=== PATIENT | female | born 1950 | race Caucasian/White ===

== ENCOUNTER 2016-08-31 07:30 | Inpatient (IN) | payer MEDICARE, OTHER ==
[~2016-08-31] VITALS: Ht 157.5 cm; Wt 98.0 kg
[2016-08-31] MEDS ORDERED: FERR325C PO (12:40)
[2016-08-31] MEDS ORDERED: GABA-531 PO ×2 (12:40)
[2016-08-31] MEDS ORDERED: VITAD5000 PO (12:40)
[2016-08-31] MEDS ORDERED: PERCT PO (12:40)
[2016-08-31] MEDS ORDERED: LEVO75 PO (12:40)
[2016-08-31] MEDS ORDERED: SERT50TA12 PO (12:40)
[2016-08-31] MEDS ORDERED: WARF2.5 PO ×2 (12:40)
[2016-08-31] MEDS ORDERED: FAMO20 PO (12:40)
[2016-08-31] MEDS ORDERED: LISI-661 PO (12:40)
[2016-08-31] MEDS ORDERED: DIPH25 PO (12:40)
[2016-08-31] MEDS ORDERED: LORA10TA7 PO (12:40)
[2016-08-31 17:50] VITALS: BP 176/85
[2016-08-31 18:14] LABS: INR 1.6 (0.9-1.1); PROTHROMBIN TIME 16.8 SEC (9.4-11.6)
[2016-08-31] MEDS ORDERED: HEPARIN SODIUM 25000 UNITS/D5W 250 ML IV PRN (18:40)
[2016-08-31] MEDS ORDERED: HEPARIN SODIUM,PORCINE 5,000 UNITS/ML VIAL IVP PRN ×2 (18:45)
[2016-08-31 19:05] VITALS: BP 145/85
[2016-08-31 19:36] VITALS: BP 148/86
[2016-08-31 19:51] VITALS: BP 148/86
[2016-08-31] MEDS ORDERED: OxyCODONE HCL/ACETAMINOPHEN 5-325 MG TABLET PO PRN (20:30)
[2016-08-31 20:52] LABS: BASOPHILS % (AUTO) 0.3 % (0.0-2.0); EOSINOPHILS % (AUTO) 1.9 % (1.0-6.0); HEMATOCRIT 37.4 % (36-46); HEMOGLOBIN 12.7 g/dL (12.0-16.0); LYMPHOCYTES # (AUTO) 1.6 K/uL (1.0-4.8); MEAN CORPUSCULAR HEMOGLOBIN 29.9 pg (26.0-34.0); MEAN CORPUSCULAR HGB CONC 33.8 G/dL (31.0-37.0); MEAN CORPUSCULAR VOLUME 88 fL (80-100); MONOCYTES # (AUTO) 0.4 K/uL (0.1-1.0); NEUTROPHILS # (AUTO) 3.1 K/uL (1.8-7.7); NEUTROPHILS % (AUTO) 59.8 % (40.0-70.0); PLATELET COUNT (AUTO) 202 K/uL (150-450); RED BLOOD CELL COUNT(AUTO) 4.23 MIL/uL (4.00-5.20); WHITE BLOOD COUNT (AUTO) 5.2 K/uL (4.5-11.0)
[2016-08-31] MEDS: FAMOTIDINE 20 MG TABLET PO SCH (20:59)
[2016-08-31] MEDS ORDERED: DiphenhydrAMINE HCL 25 MG CAPSULE PO SCH (21:00)
[2016-08-31] MEDS ORDERED: GABAPENTIN 300 MG CAPSULE PO SCH (21:00)
[2016-08-31 21:10] LABS: ANION GAP 9 mmol/L (8-16); CALCIUM, TOTAL 8.6 mg/dL (8.8-10.5); CARBON DIOXIDE 30 mmol/L (22-29); CHLORIDE 104 mmol/L (98-107); CREATININE 0.78 mg/dL (0.60-1.30); GLOMERULAR FILTR. RATE CALC > 60 mL/min (>60); POTASSIUM 3.7 mmol/L (3.5-5.1); SODIUM SERUM 143 mmol/L (136-145); UREA NITROGEN, BLOOD 16 mg/dL (7-18)
[2016-08-31] MEDS: SERTRALINE HCL 50 MG TABLET PO SCH (21:19)
[2016-08-31] MEDS ORDERED: 0.9% SODIUM CHLORIDE 10 ML SYRINGE IVP PRN (23:00)
[2016-08-31 23:31] VITALS: BP 151/70
[2016-09-01 03:53] LABS: BASOPHILS % (AUTO) 0.2 % (0.0-2.0); EOSINOPHILS % (AUTO) 2.3 % (1.0-6.0); HEMATOCRIT 34.6 % (36-46); HEMOGLOBIN 11.5 g/dL (12.0-16.0); LYMPHOCYTES # (AUTO) 1.5 K/uL (1.0-4.8); LYMPHOCYTES % (AUTO) 32.9 % (22.0-44.0); MEAN CORPUSCULAR HEMOGLOBIN 29.6 pg (26.0-34.0); MEAN CORPUSCULAR HGB CONC 33.3 G/dL (31.0-37.0); MEAN CORPUSCULAR VOLUME 89 fL (80-100); MONOCYTES # (AUTO) 0.5 K/uL (0.1-1.0); MONOCYTES % (AUTO) 10.3 % (2.0-9.0); NEUTROPHILS # (AUTO) 2.5 K/uL (1.8-7.7); NEUTROPHILS % (AUTO) 54.3 % (40.0-70.0); PLATELET COUNT (AUTO) 170 K/uL (150-450); RED CELL DISTRIBUTION WIDTH 13.4 % (11.5-14.5); WHITE BLOOD COUNT (AUTO) 4.6 K/uL (4.5-11.0)
[2016-09-01 03:59] VITALS: BP 135/69
[2016-09-01] MEDS: HYDROmorphone 2 MG/ML SYRINGE IVP PRN ×2 (04:19→10:42)
[2016-09-01] MEDS ORDERED: VANCOMYCIN HCL 1 GM/D5% WATER 200 ML IV ONE ×2 (06:00→18:00)
[2016-09-01] MEDS ORDERED: RINGERS SOLUTION,LACTATED 1,000 ML IV ONE (06:00)
[2016-09-01] MEDS ORDERED: LEVOTHYROXINE SODIUM 75 MCG TABLET PO SCH (06:30)
[2016-09-01] MEDS ORDERED: GUM MASTIC/STORAX/MSAL/ALCOHOL LIQUID 0.67 ML VIAL TP ONE ×2 (06:45→08:25)
[2016-09-01] MEDS: ACETAMINOPHEN 1000 MG/ISO-OSM 100 ML IV SCH ×2 (07:00→13:09)
[2016-09-01] MEDS ORDERED: PROMETHAZINE HCL 25 MG/ML VIAL IM PRN (07:00)
[2016-09-01] MEDS ORDERED: ONDANSETRON HCL 4 MG/2 ML VIAL IVP PRN (07:00)
[2016-09-01] MEDS ORDERED: HYDROmorphone 2 MG/ML SYRINGE IVP PRN ×2 (07:00→09:30)
[2016-09-01] MEDS ORDERED: ACETAMINOPHEN 1000 MG/ISO-OSM 100 ML IV ONE (07:05)
[2016-09-01] MEDS ORDERED: PHYTONADIONE 5 MG in SODIUM CHLORIDE 0.9% 50 ML IV ONE (07:30)
[2016-09-01] MEDS ORDERED: SODIUM CL IRRIG SOLN BAG 3,000 ML IRRIG ONE (07:30)
[2016-09-01] MEDS ORDERED: FERROUS SULFATE 325 MG EC TABLET PO SCH (08:00)
[2016-09-01] MEDS: BUPIVACAINE LIPOSOME/PF 1.3%-13.3MG/ML SUSPENSION 20 ML VIAL INJ ONE ×2 (08:04→08:20)
[2016-09-01] MEDS: BUPIVACAINE HCL/PF 0.5% 30 ML VIAL ONE ×2 (08:05→08:20)
[2016-09-01] MEDS ORDERED: MUPIROCIN CALCIUM 2% 22 GM OINTMENT ONE (08:25)
[2016-09-01] MEDS ORDERED: CHOLECALCIFEROL (VIT D3) 5,000 UNITS CAPSULE PO SCH (09:00)
[2016-09-01] MEDS ORDERED: LISINOPRIL 10 MG TABLET PO SCH (09:00)
[2016-09-01] MEDS ORDERED: GABAPENTIN 300 MG CAPSULE PO SCH (09:00)
[2016-09-01] MEDS ORDERED: LORATADINE 10 MG TABLET PO SCH (09:00)
[2016-09-01] MEDS ORDERED: METOPROLOL TARTRATE 5 MG/5 ML VIAL IVP ONE (09:30)
[2016-09-01] MEDS ORDERED: MEPERIDINE-PF 25 MG/ML SYRINGE IVP PRN (09:30)
[2016-09-01] MEDS ORDERED: OXYGEN THERAPY IH SCH (09:39)
[2016-09-01] MEDS: FentaNYL CITRATE-PF 100 MCG/2 ML VIAL IVP PRN ×2 (09:50→09:54)
[2016-09-01 10:15] VITALS: BP 185/91
[2016-09-01] MEDS: FAMOTIDINE 20 MG TABLET PO SCH (11:50)
[2016-09-01] MEDS: SERTRALINE HCL 50 MG TABLET PO SCH (11:51)
[2016-09-01 12:43] LABS: INR 1.2 (0.9-1.1); PROTHROMBIN TIME 12.8 SEC (9.4-11.6)
[2016-09-01 14:15] VITALS: BP 185/92
[2016-09-01] MEDS ORDERED: METOCLOPRAMIDE HCL 5 MG/ML 2 ML VIAL IVP ONE (14:59)
[2016-09-01] MEDS ORDERED: PHENYLEPHRINE HCL 10 MG/ML VIAL IVP ONE (14:59)
[2016-09-01] MEDS ORDERED: ROCURONIUM BROMIDE 10 MG/ML 5 ML VIAL IVP ONE (14:59)
[2016-09-01] MEDS ORDERED: NEOSTIGMINE METHYLSULFATE 1 MG/ML 10 ML VIAL IVP ONE (14:59)
[2016-09-01] MEDS ORDERED: MIDAZOLAM HCL 2 MG/2 ML VIAL IVP ONE (14:59)
[2016-09-01] MEDS ORDERED: LIDOCAINE HCL/PF 2% 5 ML VIAL IM ONE (14:59)
[2016-09-01] MEDS ORDERED: SUCCINYLCHOLINE CHLORIDE 20 MG/ML 10 ML VIAL IVP ONE (14:59)
[2016-09-01] MEDS ORDERED: 0.9% SODIUM CHLORIDE 10 ML VIAL IVP ONE (14:59)
[2016-09-01] MEDS ORDERED: DEXAMETHASONE SOD PHOS 4 MG/ML VIAL IVP ONE (14:59)
[2016-09-01] MEDS ORDERED: GLYCOPYRROLATE 0.2 MG/ML VIAL IM ONE (14:59)
[2016-09-01] MEDS ORDERED: ONDANSETRON HCL 4 MG/2 ML VIAL IVP ONE (14:59)
[2016-09-01] MEDS ORDERED: FentaNYL CITRATE-PF 250 MCG/5 ML VIAL IVP ONE (14:59)
[2016-09-01] MEDS ORDERED: PROPOFOL 1% 20 ML VIAL IVP ONE (14:59)
== END 2016-09-01 15:00 | disposition home or self-care (01) | DRG 512 ==
LOC: 4E 18:50
PROVIDERS: ADMIT Internal Medicine; ATTEND Orthopaedic Surgery
PROC: 0PSL0ZZ Reposition Left Ulna, Open Approach (ICD-10-PCS; 2016-09-01)
PROC: 01N50ZZ Release Median Nerve, Open Approach (ICD-10-PCS; 2016-09-01)
PROC: 0PSJ04Z Reposition Left Radius with Internal Fixation Device, Open Approach (ICD-10-PCS; principal; 2016-09-01 07:50)
DX: S52.572A Other intraarticular fracture of lower end of left radius, initial encounter for closed fracture (principal); I34.1 Nonrheumatic mitral (valve) prolapse; E66.9 Obesity, unspecified; J45.909 Unspecified asthma, uncomplicated; I10 Essential (primary) hypertension; I25.10 Atherosclerotic heart disease of native coronary artery without angina pectoris; S52.602A Unspecified fracture of lower end of left ulna, initial encounter for closed fracture; G56.02 Carpal tunnel syndrome, left upper limb; Z79.01 Long term (current) use of anticoagulants; Z88.0 Allergy status to penicillin; Z95.810 Presence of automatic (implantable) cardiac defibrillator; Z98.1 Arthrodesis status; Z86.718 Personal history of other venous thrombosis and embolism; Z98.890 Other specified postprocedural states; Z90.710 Acquired absence of both cervix and uterus; W19.XXXA Unspecified fall, initial encounter; Y93.89 Activity, other specified; Y92.89 Other specified places as the place of occurrence of the external cause; Y99.8 Other external cause status
CPT/HCPCS: 86850; 86900; 86901; 87081; 93005; 93306; 93970; 97161; 97166; 97535; C1713; C9290; J0131; J0330; J1100; J1170; J1644; J2250; J2370; J2405; J2704; J2765; J3010; J3370; J3430; J3490; J7050; J7120